=== PATIENT | female | born 1955 | race Two or more races ===

== ENCOUNTER 2016-10-26 19:41 | Emergency (ER) | payer OTHER ==
[2016-10-26 19:48] VITALS: BP 149/86; PULSE 86; TEMP 98.5; BMI 28.2
[2016-10-26] MEDS ORDERED: KETOROLAC TROMETHAMINE 30 MG/1 ML VIAL IVPUSH ONE (21:16)
[2016-10-26] MEDS ORDERED: SODIUM CHLORIDE 1,000 ML IV STA (21:16)
--- NOTE | 2016-10-26 21:16 | PDOC ---
History of Present Illness - History of Present Illness Initial Comments: 10/26/16 22:12 The patient is a 61 year old female with significant history of sinusitis who presents to the ED complaining of approximately 10 days of left ear pain and discomfort. She was seen by an outside doctor at the start of her left ear discomfort and was started on a 7 day course of antibiotics which she completed. She does not recall the name of the antibiotic. She states her pain got worse while traveling to the [facility] last week. Her ear pain is sharp, constant, worse after swimming. The patient denies fever or chills. She denies nausea, vomiting, or diarrhea. No right ear involvement. No cough or sore throat. Allergies: Penicillins, Keflex <Mihaela Craig - Last Filed: 10/27/16 00:19> - General History Source: Patient Exam Limitations: No Limitations <Pravin Carmona - Last Filed: 10/27/16 00:32> - General Chief Complaint: Ear Problem Stated Complaint: EAR PAIN Time Seen by Provider: 10/26/16 20:36 Past History <Mihaela Craig - Last Filed: 10/27/16 00:19> - Past Medical History Asthma: Yes Suicide Attempt (Hx): Yes - Surgical History Abdominal Surgery: Yes (izaiah) Cardiac Surgery: No Cholecystectomy: Yes Lung Surgery: No Neurologic Surgery: No - Psycho/Social/Smoking Cessation Hx Anxiety: No Suicidal Ideation: No Smoking Status: No Smoking History: Never smoked Have you smoked in the past 12 months: No Number of Cigarettes Smoked Daily: 0 Information on smoking cessation initiated: No Hx Alcohol Use: No Drug/Substance Use Hx: No Substance Use Type: None Hx Substance Use Treatment: No <Pravin Carmona - Last Filed: 10/27/16 00:32> - Past Medical History Allergies/Adverse Reactions: Allergies Allergy/AdvReac Type Severity Reaction Status Date / Time cephalexin monohydrate Allergy Rash Verified 10/26/16 19:48 [From Keflex] Penicillins Allergy Rash Verified 10/26/16 19:48 Home Medications: Ambulatory Orders Salmeterol/Fluticasone [Advair 500Mcg/50Mcg -] 1 inh IH BID #1 inh 12/30/12 Gabapentin [Neurontin] 800 mg PO TID 09/23/13 Pregabalin [Lyrica -] 150 mg PO TID 01/28/15 Polyethylene Glycol 3350 [Miralax 119 gm Btl -] 17 gm PO DAILY PRN #1 bottle 04/17 Ursodiol [Actigal -] 300 mg PO BID #60 capsule 02/18/15 Ciprofloxacin HCl/Dexameth [Ciprodex Otic Suspension] 3 drop OT BID #1 bottle Ciprofloxacin [Cipro -] 500 mg PO Q12H #20 tablet 10/27/16 Naproxen [Naprosyn -] 500 mg PO BID PRN #20 tablet 10/27/16 Review of Systems - Review of Systems Able to Perform ROS?: Yes Comments:: 10/26/16 22:16 GENERAL/CONSTITUTIONAL: No fever or chills. No weakness. HEAD, EYES, EARS, NOSE AND THROAT: +Left ear pain x 10 days. No right ear pain. No change in vision. No sore throat. CARDIOVASCULAR: No chest pain or shortness of breath. RESPIRATORY: No cough, wheezing, or hemoptysis. GASTROINTESTINAL: No nausea, vomiting, diarrhea or constipation. GENITOURINARY: No dysuria, frequency, or change in urination. MUSCULOSKELETAL: No joint or muscle swelling or pain. No neck or back pain. SKIN: No rash NEUROLOGIC: No headache, vertigo, loss of consciousness, or change in strength/ sensation. ENDOCRINE: No increased thirst. No abnormal weight change. HEMATOLOGIC/LYMPHATIC: No anemia, easy bleeding, or history of blood clots. ALLERGIC/IMMUNOLOGIC: No hives or skin allergy. <Mihaela Craig - Last Filed: 10/27/16 00:19> *Physical Exam - Vital Signs Last Vital Signs Temp Pulse Resp BP Pulse Ox 98.5 F 86 22 149/86 100 10/26/16 19:45 10/26/16 19:45 10/26/16 19:45 10/26/16 19:45 10/26/16 19:45 - Physical Exam Comments: 10/26/16 22:16 GENERAL: Awake, alert, and fully oriented, in no acute distress HEAD: No signs of trauma EYES: PERRLA, EOMI, sclera anicteric, conjunctiva clear ENT: Left ear: Tenderness to the mastoid and tragus. TM is mildly erythematous with swelling of the ear canal. Right ear normal inspection. Hearing grossly normal, nares patent, oropharynx clear without exudates. Moist mucosa NECK: Normal ROM, supple, no lymphadenopathy, JVD, or masses EXTREMITIES: Normal range of motion, no edema. No clubbing or cyanosis. No cords, erythema, or tenderness NEUROLOGICAL: Cranial nerves II through XII grossly intact. Normal speech, normal gait SKIN: Warm, Dry, normal turgor, no rashes or lesions noted. <Mihaela Craig - Last Filed: 10/27/16 00:19> - Vital Signs Last Vital Signs Temp Pulse Resp BP Pulse Ox 98.5 F 86 22 149/86 100 10/26/16 19:45 10/26/16 19:45 10/26/16 19:45 10/26/16 19:45 10/26/16 19:45 <Pravin Carmona - Last Filed: 10/27/16 00:32> ED Treatment Course - LABORATORY CBC & Chemistry Diagram: 10/26/16 21:55 10/26/16 21:55 - RADIOLOGY Radiology Studies Ordered: 10/27/16 00:19 CT of orbital/temporal bone without contrast. Images preliminarily read by Imaging Tack Cutter Radiograph Interpretation: 10/27/16 00:20 Impression: No evidence of mastoiditis Findings suggestive of left otitis externa - Medications Given in the ED: ED Medications Discontinued Medications Generic Name Dose Route Start Last Admin Trade Name Freq PRN Reason Stop Dose Admin Ketorolac Tromethamine 30 mg 10/26/16 21:16 10/26/16 22:05 Toradol Injection - IVPUSH 10/26/16 21:17 30 mg ONCE ONE Administration <Mihaela Craig - Last Filed: 10/27/16 00:19> - LABORATORY CBC & Chemistry Diagram: 10/26/16 21:55 10/26/16 21:55 <Pravin Carmona - Last Filed: 10/27/16 00:32> Medical Decision Making - Medical Decision Making 10/26/16 21:55 A portion of this note was documented by scribe services under my direction. I have reviewed the details of the note, within reason, and agree with the documentation with the following case summary and management plan written by me. Patient treated in the ED. Nursing notes are reviewed and incorporated into the medical decision-making. Vital signs reviewed. Peripheral IV access obtained by the nurse, laboratory studies are drawn and sent, reviewed and interpreted by myself. Vital Signs Temp Pulse Resp BP Pulse Ox 98.5 F 86 22 149/86 100 10/26/16 19:45 10/26/16 19:45 10/26/16 19:45 10/26/16 19:45 10/26/16 19:45 61 year old female with past medical history of asthma, sinusitis resents with 10 days of left ear pain. Patient developed some mild left your discomfort 10 days ago prior to her trip to [facility]. Was initiated on antibiotic to which she did not remember the name of. Seven-day course which she completed. However, patient went swimming and noted that her left ear was progressively worsening. Now she complains about left mastoid pain in addition to left tragus pain and left in her ear pain. Denies fevers or chills but came to the ED. Has not taken any medications for discomfort. Patient most certainly has otitis externa and requires treatment with fluoroquinolones. However, given the mastoid tenderness, we'll obtain a CT to evaluate for mastoiditis. Labs and reassess. 10/27/16 00:24 CBC, BMP 10/26/16 21:55 10/26/16 21:55 CMP Sodium 141 mmol/L (136-145) 10/26/16 21:55 Potassium 4.4 mmol/L (3.5-5.1) 10/26/16 21:55 Chloride 105 mmol/L (98-107) 10/26/16 21:55 Carbon Dioxide 29 mmol/L (21-32) 10/26/16 21:55 Anion Gap 7 (8-16) L 10/26/16 21:55 BUN 20 mg/dL (7-18) H D 10/26/16 21:55 Creatinine 1.0 mg/dL (0.55-1.02) D 10/26/16 21:55 Creat Clearance w eGFR 56.56 (>60) 10/26/16 21:55 Random Glucose 110 mg/dL (74-106) H D 10/26/16 21:55 Calcium 9.0 mg/dL (8.5-10.1) 10/26/16 21:55 Total Bilirubin 0.3 mg/dL (0.2-1.0) D 10/26/16 21:55 AST 24 U/L (15-37) 10/26/16 21:55 ALT 35 U/L (12-78) D 10/26/16 21:55 Alkaline Phosphatase 64 U/L (45-117) 10/26/16 21:55 Total Protein 7.6 g/dl (6.4-8.2) 10/26/16 21:55 Albumin 3.7 g/dl (3.4-5.0) 10/26/16 21:55 CT reviewed. Otitis externa but no mastoiditis. Will treat with cipro HC otic solution and cipro PO BID. Otiitis externa. Pt reports feeling better with NSAIDS. F/u with PMD I discussed the physical exam findings, ancillary test results and final diagnoses with the patient. I answered all of the patient's questions. The patient was satisfied with the care received and felt comfortable with the discharge plan and treatment plan. The patient will call their primary care physician within 24 hours to arrange follow-up and will return to the Emergency Department with any new, persistant or worsening symptoms. <Pravin Carmona - Last Filed: 10/27/16 00:32> *DC/Admit/Observation/Transfer - Attestations Scribe Attestion: 10/26/16 22:18 Documentation prepared by Mihaela Craig, acting as medical receptionist medical assistant for Pravin Carmona MD. <Mihaela Craig - Last Filed: 10/27/16 00:19> - Discharge Dispostion Admit: No <Pravin Carmona - Last Filed: 10/27/16 00:32> Diagnosis at time of Disposition: Otitis externa Qualifiers: Otitis externa type: unspecified type Chronicity: acute Laterality: left Qualified Code(s): H60.502 - Unspecified acute noninfective otitis externa, left ear - Discharge Dispostion Disposition: HOME Condition at time of disposition: Stable - Prescriptions Prescriptions: Ciprofloxacin [Cipro -] 500 mg PO Q12H #20 tablet Ciprofloxacin HCl/Dexameth [Ciprodex Otic Suspension] 3 drop OT BID #1 bottle Naproxen [Naprosyn -] 500 mg PO BID PRN #20 tablet PRN Reason: Pain - Referrals Referrals: Aurora Velazquez MD [Staff Physician] - - Patient Instructions Printed Discharge Instructions: DI for Otitis Externa Additional Instructions: Please use the ciprodex drops twice a day for 7 days. Also take the cipro 500 mg every 12 hours for 10 days. Take 500 mg naproxen every 12 hours as needed for pain. Follow up with your doctor.
[2016-10-26] MEDS ORDERED: LEVOFLOXACIN 500 MG IVPB 100 ML IVPB ONE ×2 (21:17→21:58)
[2016-10-26] MEDS ORDERED: KETOROLAC TROMETHAMINE 30 MG/1 ML VIAL ONE (21:58)
[2016-10-26 22:05] LABS: BASOPHIL 0.9 % (0-2.0); EOSINOPHIL 4.1 % (0-4.5); MCHC 34.1 g/dl (32.0-36.0); MEAN PLT VOLUME 8.8 fl (7.5-11.1); NEUTROPHILS 63.3 % (42.8-82.8); PLATELET COUNT 315 K/MM3 (134-434); RDW 15.7 % (11.6-15.6)
[2016-10-26 22:30] LABS: ALBUMIN 3.7 g/dl (3.4-5.0); ALK PHOS 64 U/L (45-117); ANION GAP 7 (8-16); BILIRUBIN,TOTAL 0.3 mg/dL (0.2-1.0); CO2 29 mmol/L (21-32); GLUCOSE,RANDOM 110 mg/dL (74-106); SGOT/AST 24 U/L (15-37); SGPT/ALT 35 U/L (12-78); TOT PROT 7.6 g/dl (6.4-8.2)
--- NOTE | 2016-10-28 18:22 | PDOC ---
Patient Follow-up (Call Back) - Post ED Follow - Up Condition at time of discharge: Stable Disposition at time of original discharge: HOME Reason for Call Back: Radiology (CAT scan/temporal bones CT without contrast read by Dr. Rose he called to report that there is on the left temporal bone Opacification of the superior tympanic recess consistent with otitis media. He also noted that pt has trace fluid accumulation within the left mastoid air cells. Patient was treated for left external otitis and was discharged on Cipro and ciprofloxacin otic drops. Pt. was called she is feeling better denies any pain behind left ear or fever. pt was told that azithromycin 250 mg 2 tabs today than one daily for following 4 days was to be started today. She also told to return to emergency room if any fever or pain behind left ear or redness of area or any chills. Patient was also informed to follow-up with her primary care provider as soon as possible.)
== END 2016-10-27 01:03 | disposition home or self-care (01) ==
LOC: SUPCPDRO 19:41 → JERFT 19:41 → JER 19:41
PROC: 3E03329 Introduction of Other Anti-infective into Peripheral Vein, Percutaneous Approach (ICD-10-PCS; principal; 2016-10-26)
PROC: 3E0333Z Introduction of Anti-inflammatory into Peripheral Vein, Percutaneous Approach (ICD-10-PCS; 2016-10-26)
DX: H60.502 Unspecified acute noninfective otitis externa, left ear (principal)
CPT/HCPCS: 36415; 70480-TC; 80053; 85025; 96365; 96375; 99282-25

== ENCOUNTER 2017-11-24 11:12 | Emergency (ER) | payer OTHER ==
[2017-11-24 11:20] VITALS: TEMP 97.7; BMI 28.7
--- NOTE | 2017-11-24 11:44 | PDOC ---
History of Present Illness - General Chief Complaint: Pain Stated Complaint: ABD PAIN Time Seen by Provider: 11/24/17 11:35 History Source: Patient Exam Limitations: No Limitations - History of Present Illness Initial Comments: 11/24/17 12:10 Past History - Past Medical History Allergies/Adverse Reactions: Allergies Allergy/AdvReac Type Severity Reaction Status Date / Time cephalexin monohydrate Allergy Rash Verified 11/24/17 11:18 [From Keflex] Penicillins Allergy Rash Verified 11/24/17 11:18 Home Medications: Ambulatory Orders Salmeterol/Fluticasone [Advair 500Mcg/50Mcg -] 1 inh IH BID #1 inh 12/30/12 Gabapentin [Neurontin] 800 mg PO TID 09/23/13 Pregabalin [Lyrica -] 150 mg PO TID 01/28/15 Polyethylene Glycol 3350 [Miralax 119 gm Btl -] 17 gm PO DAILY PRN #1 bottle 04/17 Ursodiol [Actigal -] 300 mg PO BID #60 capsule 02/18/15 Ciprofloxacin HCl/Dexameth [Ciprodex Otic Suspension] 3 drop OT BID #1 bottle Ciprofloxacin [Cipro -] 500 mg PO Q12H #20 tablet 10/27/16 Naproxen [Naprosyn -] 500 mg PO BID PRN #20 tablet 10/27/16 Azithromycin [Zithromax 250mg Tablets -] 250 mg PO UTDICT #6 tab 10/28/16 Famotidine [Pepcid -] 20 mg PO BID #14 tablet 11/24/17 Sulfamethoxazole/Trimethoprim [Bactrim Ds -] 1 tab PO BID #14 tablet 11/24/17 Asthma: Yes COPD: No - Surgical History Abdominal Surgery: Yes (izaiah) Cardiac Surgery: No Cholecystectomy: Yes Lung Surgery: No Neurologic Surgery: No - Suicide/Smoking/Psychosocial Hx Smoking Status: No Smoking History: Never smoked Have you smoked in the past 12 months: No Number of Cigarettes Smoked Daily: 0 Hx Alcohol Use: No Drug/Substance Use Hx: No Substance Use Type: None Hx Substance Use Treatment: No Review of Systems - Review of Systems Able to Perform ROS?: Yes Comments:: 11/24/17 16:46 CONSTITUTIONAL: Absent: fever, chills, diaphoresis, generalized weakness, malaise, loss of appetite HEENT: Absent: rhinorrhea, nasal congestion, throat pain, throat swelling, difficulty swallowing, mouth swelling, ear pain, eye pain, visual Changes CARDIOVASCULAR: Absent: chest pain, loss of consciousness, palpitations, irregular heart rate, peripheral edema RESPIRATORY: Absent: cough, shortness of breath, dyspnea with exertion, orthopnea, wheezing, stridor, hemoptysis GASTROINTESTINAL: Absent: abdominal pain, abdominal distension, nausea, vomiting, diarrhea, constipation, melena, hematochezia GENITOURINARY: Absent: dysuria, frequency, urgency, hesitancy, hematuria, flank pain, genital pain MUSCULOSKELETAL: Absent: myalgia, arthralgia, joint swelling SKIN: Absent: rash, itching, pallor HEMATOLOGIC/IMMUNOLOGIC: Absent: easy bleeding, easy bruising, lymphadenopathy, frequent infections ENDOCRINE: Absent: unexplained weight gain, unexplained weight loss, heat intolerance, cold intolerance NEUROLOGIC: Absent: headache, focal weakness or paresthesias, dizziness, unsteady gait, seizure, mental status changes, bladder or bowel incontinence PSYCHIATRIC: Absent: anxiety, depression, suicidal or homicidal ideation, hallucinations. Is the patient limited Irish proficient: No *Physical Exam - Vital Signs Last Vital Signs Temp Pulse Resp BP Pulse Ox 97.7 F 72 18 117/79 98 11/24/17 11:18 11/24/17 11:18 11/24/17 11:18 11/24/17 11:18 11/24/17 11:18 - Physical Exam Comments: 11/24/17 16:46 GENERAL: Well developed, well nourished. Awake and alert. No acute distress. HEENT: Normocephalic, atraumatic. PERRLA, EOMI. No conjunctival pallor. Sclera are non- icteric. Moist mucous membranes. Oropharynx is clear. NECK: Supple. Full ROM. No JVD. Carotid pulses 2+ and symmetric, without bruits. No thyromegaly. No lymphadenopathy. CARDIOVASCULAR: Regular rate and rhythm. No murmurs, rubs, or gallops. Distal pulses are 2+ and symmetric. PULMONARY: No evidence of respiratory distress. Lungs clear to auscultation bilaterally. No wheezing, rales or rhonchi. ABDOMINAL: Soft. Non-tender. Non-distended. No rebound or guarding. No organomegaly. Normoactive bowel sounds. MUSCULOSKELETAL Normal range of motion at all joints. No bony deformities or tenderness. No CVA tenderness. EXTREMITIES: No cyanosis. No clubbing. No edema. No calf tenderness. SKIN: Warm and dry. Normal capillary refill. No rashes. No jaundice. NEUROLOGICAL: Alert, awake, appropriate. Cranial nerves 2-12 intact. No deficits to light touch and temperature in face, upper extremities and lower extremities. No motor deficits in the in face, upper extremities and lower extremities. Normoreflexic in the upper and lower extremities. Normal speech. Toes are down- going bilaterally. Gait is normal without ataxia. PSYCHIATRIC: Cooperative. Good eye contact. Appropriate mood and affect. ED Treatment Course - LABORATORY CBC & Chemistry Diagram: 11/24/17 12:20 11/24/17 12:20 *DC/Admit/Observation/Transfer Diagnosis at time of Disposition: Epigastric abdominal pain UTI (urinary tract infection) Qualifiers: Urinary tract infection type: acute cystitis Hematuria presence: without hematuria Qualified Code(s): N30.00 - Acute cystitis without hematuria - Discharge Dispostion Disposition: HOME Condition at time of disposition: Stable Decision to Admit order: No - Prescriptions Prescriptions: Famotidine [Pepcid -] 20 mg PO BID #14 tablet Sulfamethoxazole/Trimethoprim [Bactrim Ds -] 1 tab PO BID #14 tablet - Referrals Referrals: Aurora Velazquez MD [Primary Care Provider] - - Patient Instructions Printed Discharge Instructions: DI for Gastritis Additional Instructions: You have a urinary tract infection. This caused by bacteria. Please drink plenty of fluids. Take your antibiotics as prescribed. Finish the entire dose even if you feel better. You may take Tylenol or Motrin as needed for pain You also have gastritis. Your lab work and ultrasound were normal today Avoid spicy/acidic foods until your symptoms resolve Take the pepcid twice a day for one week Follow up with your primary care doctor in 2-3 days Return to the emergency department if you have fevers, chills, nausea, vomiting , back pain, or have any changes in your symptoms. - Post Discharge Activity Forms/Work/School Notes: Back to Work
[2017-11-24] MEDS ORDERED: SODIUM CHLORIDE 1,000 ML IV STA (11:45)
[2017-11-24] MEDS ORDERED: ACETAMINOPHEN 1000 MG/100 ML VIAL (NON FORMULARY) IVPB ONE (11:45)
[2017-11-24] MEDS ORDERED: ACETAMINOPHEN INJECTION 100 ML IVPB ONE (12:01)
[2017-11-24 12:45] LABS: BASO % 0.6 % (0-2.0); EOS % 3.8 % (0-4.5); HEMATOCRIT 41.4 % (32.4-45.2); HEMOGLOBIN 14.2 GM/dL (10.7-15.3); LYMPH % 34.5 % (8-40); MCHC 34.3 g/dl (32.0-36.0); MEAN CELL VOLUME 84.4 fl (80-96); MEAN PLT VOLUME 9.2 fl (7.5-11.1); MONO % 6.9 % (3.8-10.2); NEUT % 54.2 % (42.8-82.8); PLATELET COUNT 308 K/MM3 (134-434); RBC 4.91 M/mm3 (3.60-5.2); RDW 14.5 % (11.6-15.6); WHITE BLOOD COUNT 8.4 K/mm3 (4.0-10.0)
[2017-11-24 13:02] LABS: ALBUMIN 3.9 g/dl (3.4-5.0); ALK PHOS 64 U/L (45-117); ANION GAP 5 MMOL/L (8-16); BILIRUBIN,TOTAL 0.7 mg/dL (0.2-1); BLOOD UREA NITROGEN 23 mg/dL (7-18); CALCIUM 9.3 mg/dL (8.5-10.1); CHLORIDE 104 mmol/L (98-107); CO2 30 mmol/L (21-32); CREATININE 0.9 mg/dL (0.55-1.3); GLUCOSE,RANDOM 84 mg/dL (74-106); LIPASE 174 U/L (73-393); MAGNESIUM 2.2 mg/dL (1.8-2.4); POTASSIUM 4.7 mmol/L (3.5-5.1); SGOT/AST 34 U/L (15-37); SGPT/ALT 35 U/L (13-61); SODIUM 139 mmol/L (136-145); TOT PROT 7.4 g/dl (6.4-8.2)
[2017-11-24 13:26] LABS: INR 1.03 (0.83-1.09); PROTHROMBIN TIME (PATIENT) 11.6 SEC (9.7-13.0)
[2017-11-24] MEDS ORDERED: ONDANSETRON 4 MG/2 ML VIAL IVPUSH ONE (13:40)
[2017-11-24] MEDS ORDERED: MAG HYDROX/AL HYDROX/SIMETH 30 ML UNIT-DOSE CUP PO ONE (13:40)
[2017-11-24] MEDS ORDERED: FAMOTIDINE 20 MG/50 ML IVPB 20 MG/50 ML MG IVPB ONE ×2 (13:40→14:13)
[2017-11-24] MEDS ORDERED: MAG HYDROX/AL HYDROX/SIMETH 30 ML UNIT-DOSE CUP ONE (14:13)
[2017-11-24 16:29] LABS: URINE APPEARANCE CLEAR; URINE BILIRUBIN NEGATIVE (<2.0 mg/dL); URINE COLOR LTYELLOW; URINE GLUCOSE (UA) NEGATIVE (NEGATIVE); URINE KETONE NEGATIVE (NEGATIVE); URINE NITRITE NEGATIVE (NEGATIVE); URINE PROTEIN NEGATIVE (NEGATIVE); URINE UROBILINOGEN NEGATIVE mg/dL (0.2-1.0)
[2017-11-24 16:34] LABS: URINE LEUK ESTERASE 2+ (NEGATIVE)
[2017-11-24 16:57] LABS: EPI CELLS RARE /HPF (FEW); URINE MUCUS RARE
[2017-11-24 17:14] VITALS: BP 113/65; PULSE 67
--- NOTE | 2017-11-24 18:07 | EKG ---
Test Reason : Blood Pressure : / mmHG Vent. Rate : 069 BPM Atrial Rate : 069 BPM P-R Int : 144 ms QRS Dur : 078 ms QT Int : 408 ms P-R-T Axes : 034 061 045 degrees QTc Int : 437 ms NORMAL SINUS RHYTHM WITH SINUS ARRHYTHMIA LOW VOLTAGE QRS BORDERLINE ECG WHEN COMPARED WITH ECG OF 28-JAN-2015 15:58, NO SIGNIFICANT CHANGE WAS FOUND Confirmed by PATRICE POMPA MD ([id number]) on 11/24/2017 6:07:31 PM Referred By: Confirmed By:PATRICE POMPA MD
== END 2017-11-24 17:05 | disposition home or self-care (01) ==
LOC: JER 11:12
PROC: 3E033GC Introduction of Other Therapeutic Substance into Peripheral Vein, Percutaneous Approach (ICD-10-PCS; principal; 2017-11-24)
DX: R10.13 Epigastric pain (principal); N30.00 Acute cystitis without hematuria; J45.909 Unspecified asthma, uncomplicated
CPT/HCPCS: 36415; 76705-TC; 80053; 81003; 81015; 82550; 83690; 83735; 84484; 85025; 85610; 87086; 93005; 93010; 96365; 99283-25; J0131; J7030

== ENCOUNTER 2018-01-19 02:29 | Emergency (ER) | payer OTHER ==
[2018-01-19 02:43] VITALS: BP 148/69; PULSE 98; TEMP 98.1; BMI 27.4
--- NOTE | 2018-01-19 02:43 | PDOC ---
History of Present Illness - General Chief Complaint: Foreign Body (FB) Stated Complaint: FOREIGN OBJECT IN EAR Time Seen by Provider: 01/19/18 02:43 Past History - Travel Traveled outside of the country in the last 30 days: No Close contact w/someone who was outside of country & ill: No - Past Medical History Allergies/Adverse Reactions: Allergies Allergy/AdvReac Type Severity Reaction Status Date / Time cephalexin monohydrate Allergy Rash Verified 01/19/18 02:38 [From Keflex] Penicillins Allergy Rash Verified 01/19/18 02:38 Home Medications: Ambulatory Orders Salmeterol/Fluticasone [Advair 500Mcg/50Mcg -] 1 inh IH BID #1 inh 12/30/12 Gabapentin [Neurontin] 800 mg PO TID 09/23/13 Pregabalin [Lyrica -] 150 mg PO TID 01/28/15 Polyethylene Glycol 3350 [Miralax 119 gm Btl -] 17 gm PO DAILY PRN #1 bottle 04/17 Ursodiol [Actigal -] 300 mg PO BID #60 capsule 02/18/15 Ciprofloxacin HCl/Dexameth [Ciprodex Otic Suspension] 3 drop OT BID #1 bottle Ciprofloxacin [Cipro -] 500 mg PO Q12H #20 tablet 10/27/16 Naproxen [Naprosyn -] 500 mg PO BID PRN #20 tablet 10/27/16 Azithromycin [Zithromax 250mg Tablets -] 250 mg PO UTDICT #6 tab 10/28/16 Famotidine [Pepcid -] 20 mg PO BID #14 tablet 11/24/17 Sulfamethoxazole/Trimethoprim [Bactrim Ds -] 1 tab PO BID #14 tablet 11/24/17 Asthma: Yes COPD: No - Surgical History Abdominal Surgery: Yes (lauriuck) Cardiac Surgery: No Cholecystectomy: Yes Lung Surgery: No Neurologic Surgery: No - Suicide/Smoking/Psychosocial Hx Smoking Status: No Smoking History: Never smoked Have you smoked in the past 12 months: No Number of Cigarettes Smoked Daily: 0 Information on smoking cessation initiated: No Hx Alcohol Use: No Drug/Substance Use Hx: No Substance Use Type: None Hx Substance Use Treatment: No Review of Systems - Review of Systems Able to Perform ROS?: Yes Is the patient limited Hungarian proficient: No Constitutional: No: Symptoms Reported, See HPI, Chills, Diaphoresis, Fever, Loss of Appetite, Malaise, Night Sweats, Weakness, Weight Stable, Unintentional Wgt. Loss, Unexplained wgt Loss, Other HEENTM: Yes: Hearing Loss (due to cotton in the ear) Respiratory: No: Symptoms reported, See HPI, Cough, Orthopnea, Shortness of Breath, SOB with Exertion, SOB at Rest, Stridor, Wheezing, Productive cough, Hemoptysis, Other Cardiac (ROS): No: Symptoms Reported, See HPI, Chest Pain, Edema, Irregular Heart Rate, Lightheadedness, Palpitations, Syncope, Chest Tightness, Other ABD/GI: No: Symptoms Reported, See HPI, Abdominal Distended, Abd. Pain w/ defecation, Blood Streaked Bowels, Constipated, Diarrhea, Difficulty Swallowing , Nausea, Poor Appetite, Poor Fluid Intake, Rectal Bleeding, Vomiting, Indigestion, Abdominal cramping, Tarry Stools, Other : No: Symptoms Reported, See HPI, Burning, Dysuria, Discharge, Frequency, Flank Pain, Hematuria, Incontinence, Pain, Urgency, Testicular Mass, Testicular Swelling, Lesions, Testicular Pain, Other Musculoskeletal: No: Symptoms Reported, See HPI, Back Pain, Gout, Joint Pain, Joint Swelling, Muscle Pain, Muscle Weakness, Neck Pain, Joint Stiffness, Other Integumentary: No: Symptoms Reported, See HPI, Bruising, Change in Color, Change in Hair/Nails, Dryness, Erythema, Flushing, Lesions, Lumps, Pallor, Pruritus, Rash, Sweating, Other Neurological: No: Symptoms reported, See HPI, Headache, Numbness, Paresthesia, Pre-Existing Deficit, Seizure, Tingling, Tremors, Weakness, Unsteady Gait, Ataxia, Dizziness, Other *Physical Exam - Vital Signs Last Vital Signs Temp Pulse Resp BP Pulse Ox 98.1 F 98 H 20 148/69 97 01/19/18 02:38 01/19/18 02:38 01/19/18 02:38 01/19/18 02:38 01/19/18 02:38 - Physical Exam General Appearance: Yes: Nourished, Appropriately Dressed, Mild Distress HEENT: positive: EOMI, PHILIPPE, Normal ENT Inspection, Normal Voice, Symmetrical, Pharynx Normal, TM Dull (pt has a white TM on the left. On the right TM is obscured by a cotton ball, as well as pt has a nodule in the entrance of the right ear canal) Neck: positive: Trachea midline, Supple. negative: Tender Respiratory/Chest: positive: Lungs Clear, Normal Breath Sounds. negative: Chest Tender, Respiratory Distress, Accessory Muscle Use Cardiovascular: positive: Regular Rhythm, Regular Rate, S1, S2 Gastrointestinal/Abdominal: positive: Normal Bowel Sounds, Flat, Soft. negative : Tender, Organomegaly Musculoskeletal: positive: Normal Inspection Extremity: positive: Normal Capillary Refill, Normal Inspection Integumentary: positive: Normal Color, Dry, Warm Medical Decision Making - Medical Decision Making 01/19/18 03:25 Pt placed menthol/vicks on a cotton ball and stuck in her ear, as she was having right ear pain.She accidentally pushed the cotton ball into the canal, now with pain. 01/19/18 03:25 Cotton ball removed with flushes of peroxide in the ear. Pt is feeling better. Pt will follow with Dr. Dumont. We will not prescribe ear drops. *DC/Admit/Observation/Transfer Diagnosis at time of Disposition: Foreign body in ear - Discharge Dispostion Disposition: HOME Condition at time of disposition: Improved Decision to Admit order: No - Referrals Referrals: Aurora Velazquez MD [Primary Care Provider] - Dev Dumont MD [Staff Physician] - - Patient Instructions Printed Discharge Instructions: DI for Removal of Foreign Body From Ear Print Language: WELSH - Post Discharge Activity
== END 2018-01-19 03:24 | disposition home or self-care (01) ==
LOC: JER 02:29
DX: T16.1XXA Foreign body in right ear, initial encounter (principal); X58.XXXA Exposure to other specified factors, initial encounter; Y93.89 Activity, other specified; Y92.038 Other place in apartment as the place of occurrence of the external cause; Y99.8 Other external cause status
CPT/HCPCS: 99282-25

== ENCOUNTER 2019-04-07 04:37 | Day surgery (SDC) | payer OTHER ==
[2019-04-05 13:27] VITALS: BMI 28.2
--- NOTE | 2019-04-06 19:22 | HP ---
DATE OF ADMISSION: 04/07/2019 ADMISSION DIAGNOSES: Chronic pansinusitis with nasal polyps and anosmia. HISTORY OF PRESENT ILLNESS: This 63-year-old female has had longstanding nasal and sinus problems which have failed to improve with appropriate medical therapy. She had complaints of nasal congestion, postnasal drip, sinus pain and pressure. She has significant sinus discomfort. She has been treated with numerous courses of antibiotics as well as oral and topical steroid medication, but yet has persistent symptoms. Examination demonstrates numerous nasal polyps as well as intermittent purulent drainage. CT scan demonstrates chronic pansinusitis, and she is now admitted for endoscopic sinus surgery to address ethmoid, maxillary, frontal, and sphenoid sinuses, as well as to remove a large nasal polyp. PAST MEDICAL HISTORY: Primary medical doctor is Aurora Velazquez MD. Patient has had previous sinus surgery in 2010 at [facility]. She had no anesthesia problems. Bleeding history is negative. FAMILY HISTORY: Negative for bleeding or anesthesia problems. MEDICAL CONDITIONS: Include asthma, depression, and allergies. PRESENT MEDICATIONS: Include methylprednisolone and clarithromycin. ALLERGIES: She does report an allergy to PENICILLIN which produces hives and a rash. SOCIAL HISTORY: She does not smoke. REVIEW OF SYSTEMS: Shows no cough, no fever, and no trouble swallowing. There is no abdominal pain. She does have allergies. She does have nasal congestion and postnasal drip. PHYSICAL EXAMINATION: General: Patient is a well-developed female in no acute distress. HEENT: Head is normal, and eyes are clear. Ears are unremarkable. The oral cavity is unremarkable. Examination of the nose with nasal endoscopy shows deviation of the septum. There are moderate polyps on the right and massive obstructive polyps on the left. There is significant polyposis in the middle meati and superior meati. Mucus is clear. CT scan of the paranasal sinuses performed at [facility] on March 08, 2019, shows chronic sinusitis with total opacification of the maxillary and ethmoid and sphenoid sinuses. There is partial opacification of the frontal sinuses. There is significant soft tissue, mass-like density in the left nasal cavity consistent with the nasal polyp seen on exam. There is evidence of previous nasal surgery. The orbits are normal. IMPRESSION: Chronic pansinusitis with significant polyposis. PLAN: Endoscopic sinus surgery to address ethmoid, maxillary, sphenoid, and frontal sinuses; nasal polypectomy with image guidance under general anesthesia. INFORMED CONSENT: Patient understands the indications, alternatives, nature, risks, and benefits of proposed surgery. Potential complications including, but not limited to, anesthesia, bleeding, infection, recurrence, numbness, reduced sense of smell, eye injury and brain injury were discussed in detail. She understands and accepts these risks and wishes to proceed with surgery. Questions were answered fully. DANIEL GUILLEN M.D. LUCILA/[id number] [email or web address]
[2019-04-07] MEDS ORDERED: DESFLURANE GAS 240 ML BOTTLE IH ONE (10:10)
[2019-04-07] MEDS ORDERED: MIDAZOLAM HCL 2 MG/2 ML SINGLE DOSE VIAL ONE (10:14)
[2019-04-07] MEDS ORDERED: PROPOFOL 20 ML ONE (10:14)
[2019-04-07] MEDS ORDERED: ROCURONIUM BROMIDE 50 MG/5 ML SYRINGE ONE (10:14)
[2019-04-07] MEDS ORDERED: fentaNYL CITRATE 250 MCG/5 ML VIAL ONE (10:14)
--- NOTE | 2019-04-07 10:16 | HP ---
History & Physical Update - History History: No Change - Physical Physical: No Change - Assessment Assessment: No Change - Plan Plan: No Change
[2019-04-07] MEDS ORDERED: LIDOCAINE 1%-EPI 1:100,000 30 ML MDV IJ ONE (10:17)
[2019-04-07] MEDS ORDERED: DEXAMETHASONE SOD PHOSPHATE 4 MG/1 ML VIAL ONE (10:17)
[2019-04-07] MEDS ORDERED: LIDOCAINE HCL/PF 2% SDV 5ML VIAL ONE (10:17)
[2019-04-07] MEDS ORDERED: COCAINE HCL 4% TOPICAL SOLUTION 4 ML BOTTLE TP ONE ×2 (10:19→10:53)
[2019-04-07] MEDS ORDERED: EPHEDRINE SULFATE/0.9% NACL/PF 50 MG/10 ML SYRINGE NR ONE (10:44)
[2019-04-07] MEDS ORDERED: LIDOCAINE 1%/EPI 1:100000 (20 ML MULTI DOSE VIAL) IJ ONE ×2 (10:53)
[2019-04-07] MEDS ORDERED: NEOSTIGMINE METHYLSULFATE 0.5 MG/ML - 10 ML MDV ONE (11:17)
[2019-04-07] MEDS ORDERED: GLYCOPYRROLATE 0.2 MG/1 ML VIAL ONE (11:17)
--- NOTE | 2019-04-07 12:19 | OP ---
Operative Note - Note: Operative Date: 04/07/19 (07348) Pre-Operative Diagnosis: chronic pansinusitis, extensive nasal polyposis Operation: 1. bilateral endoscopic ethmoidectomy, anterior and posterior, 2 bilateral endoscopic maxillary antrostomy with removal of tissue, 3. 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 right nasal polyp, ethmoid tissue, maxillary sinus tissue Estimated Blood Loss (mls): 25 Blood Volume Replaced (mls): 0 Fluid Volume Replaced (mls): 1,000 Operative Report Dictated: Yes
[2019-04-07] MEDS ORDERED: oxyCODONE HCL 5 MG TABLET PO PRN (12:35)
[2019-04-07] MEDS ORDERED: LACTATED RINGERS SOLUTION 1,000 ML IV SCH (12:45)
[2019-04-07] MEDS ORDERED: ONDANSETRON 4 MG/2 ML VIAL IVPUSH PRN (13:16)
[2019-04-07 14:52] VITALS: TEMP 97.6
[2019-04-07 15:52] VITALS: BP 107/68; PULSE 86
--- NOTE | 2019-04-07 22:44 | OP ---
DATE OF OPERATION: 04/07/2019 PREOPERATIVE DIAGNOSES: Chronic pansinusitis, extensive nasal polyposis. POSTOPERATIVE DIAGNOSES: Chronic pansinusitis, extensive nasal polyposis. PROCEDURE: 1. Bilateral endoscopic ethmoidectomy, anterior and posterior. 2. Bilateral endoscopic maxillary antrostomy with removal of tissue. 3. Bilateral endoscopic sphenoidotomy. 4. Bilateral endoscopic frontal sinus exploration. 5. Extensive nasal polypectomy, bilateral. 6. Image guidance. SURGEON: Dev Dumont MD ANESTHESIOLOGIST: VIVIAN Roldan-CRVarun ANESTHESIA: General via endotracheal tube. INDICATIONS: This 63-year-old female has had a long history of chronic nasal and sinus problems including nasal polyps. She has undergone previous endoscopic sinus surgery in 2010. She has had significant symptoms of obstruction, anosmia, drainage, and sinus pain. She has failed to improve with appropriate antibiotics and oral steroids. Examination demonstrates massive polyp on the left side with obstruction. Right side has polyposis. CT scan demonstrates chronic pansinusitis. She is now brought to surgery for treatment. FINDINGS: Extensive nasal polyposis, left greater than right. 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 Also, right middle turbinate significant synechiae to the lateral nasal wall and prior resection of posterior aspect of the right middle turbinate. DESCRIPTION OF PROCEDURE: Patient was brought to the operating room and placed on the operating table in supine position. General endotracheal anesthesia was induced to a satisfactory level. She was prepped and draped in the usual fashion for surgery. The nasal cavities were inspected. Lidocaine 1% with epinephrine 1:100,000 was infiltrated into the visible nasal polyps. Cocaine 4% was placed within the nasal cavities for decongestion. The [employer] Image Guidance System was utilized, uploading the patient's CT scan date and registering the patient. This system was used intermittently throughout the case to identify anatomic landmarks and to guide dissection. The nasal pledgets were removed. Nasal endoscopy was performed, and a severe left nasal polyposis was seen. Nasal polyps were also seen on the right side. Synechia was found in the left superior nasal cavity as well as the right middle turbinate to lateral nasal wall. Additional lidocaine with epinephrine was infiltrated into the lateral nasal hanley and the right middle turbinate. Additional cocaine 4% was . The left paranasal sinus was first addressed. A large nasal polyp was grasped superiorly in the ethmoid bed. This was removed and was approximately 3-4 cm in greatest dimension. After this was removed, multiple small areas of polyposis were seen within the ethmoid cavity. There was no identifiable left middle turbinate. The nasal septum had a posterior perforation between 1 to 1.5 cm in size. Polyps were seen around the sphenoethmoid recess, which were removed. The ethmoid forceps and Xomed microdebrider with guidance were used to open up some areas of blockage in the anterior and posterior ethmoid sinuses on the left. Care was taken to preserve the lamina papyracea and the fovea ethmoidalis. The sphenoethmoid recess was then opened and the sphenoid ostium enlarged. Attention was then turned toward the left maxillary sinus. Obstructing polypoid tissue was removed. The uncinate process was removed. The previous surgical antrostomy was widened. The tissue was removed from within the maxillary sinus. Finally, the frontal recess was explored using the 70-degree scope. Polypoid tissue was removed from the anterior-most ethmoid region, and the frontal recess was opened. The frontal ostium could be seen, and excellent transillumination of the frontal sinus was observed using the 70-degree scope. Attention was then turned toward the right paranasal sinuses. Nasal polyps were removed. The synechiae of the right middle turbinate and lateral nasal wall was then lysed with the sickle knife. This mobilized the very weakly attached middle turbinate, and a very large polyp was seen in the ethmoid sinus. This was removed. The anterior and posterior ethmoids were then cleaned of additional polyps and disease. The fovea ethmoidalis and lamina papyracea were preserved. The sphenoethmoid recess was cleared of polyps and sphenoidotomy created. Attention was then turned toward the right maxillary sinus. Polypoid tissue was removed from the area of the natural ostium. The interior of the maxillary sinus was observed. Reversible mucosal changes of a moderate degree were observed. Finally, the right frontal recess was explored with the 70-degree scope and the giraffe forceps. Polypoid tissue was removed from the frontal recess. The frontal ostium was identified, and again, with the 70-degree telescope, excellent frontal transillumination was observed through the forehead skin. Final inspection demonstrated open frontal, sphenoid, maxillary, and ethmoid sinuses. Spot electrocauterization was performed for some areas of oozing. Nasopore dressings were placed in the ethmoid bed on the left and the ethmoid bed, medializing the floppy middle turbinate remnant on the right. Patient tolerated the procedure well. She was then awakened from general anesthesia and transferred to the PACU in stable condition. ESTIMATED BLOOD LOSS: 25 mL. She received the procedure. SPECIMENS: Include left nasal polyp, ethmoid and maxillary sinus tissue, as well as right nasal polyp, ethmoid and maxillary sinus tissue. There were also shavings from the microdebrider, combining right and left ethmoid tissue. COMPLICATIONS: None. DEV DUMONT M.D. LUCILA/[id number]
--- NOTE | 2019-04-08 16:43 | PATH ---
Surgical Pathology Report Patient Name: ANKIT LEON [facility]. Rec. #: [id number] /Age/Gender: 1955 (Age: 63) / F Account: [id number] Location: [facility] SURGICAL Taken: 04/07/2019 Received: 04/07/2019 Reported: 04/08/2019 Physicians: Dev Dumont M.D. Specimen(s) Received A: LEFT NASAL POLYP, ETHMOID AND MAXILLARY SINUS TISSUR B: RIGHT NASAL POLYP, ETHMOID AND MAXILLARY SINUS TISSUE C: LEFT AND RIGHT ETHMOID SHAVINGS Clinical History Chronic pansinusitis, nasal polyps Final Diagnosis A. LEFT NASAL POLYP, ETHMOID AND MAXILLARY SINUS TISSUE, EXCISION: INFLAMMATORY POLYPS. CHRONIC SINUSITIS. B. RIGHT NASAL POLYP, ETHMOID AND MAXILLARY SINUS TISSUE, EXCISION: INFLAMMATORY POLYPS. CHRONIC SINUSITIS. C. LEFT AND RIGHT ETHMOIDS SHAVINGS: ETHMOID SINUS TISSUE WITH CHRONIC SINUSITIS. Electronically Signed Rakesh Randolph M.D. Gross Description A. Received in formalin labeled "left nasal polyp, ethmoid and maxillary sinus tissue," is a 3.3 x 2.5 x 0.6 cm jimenez-yellow, polypoid portion of soft tissue. Also received within the same container is a 2.7 x 2.0 x 0.3 cm aggregate of jimenez fragments of cartilage and possible bone. The specimen is entirely submitted in 3 cassettes as follows: 3-3-vhwfxrjj polyp; 3-cartilage and possible bone, following decalcification. B. Received in formalin labeled "right nasal polyp, ethmoid and maxillary sinus tissue," is a 1.7 x 1.3 x 0.6 cm jimenez, polypoid portion of soft tissue. Also received within the same container is a 1.9 x 1.6 x 0.3 cm aggregate of jimenez fragments of cartilage and possible bone. The specimen is entirely submitted in 2 cassettes as follows: 1-bisected polyp; 2-cartilage and possible bone, following decalcification. C. Received in formalin labeled "left and right ethmoid shavings," the 2.7 x 1.4 x 0.1 cm aggregate of red soft tissue fragments admixed with mucus. The formalin is filtered and the specimen is entirely submitted in one cassette. /04/07/201904/07/2019
== END 2019-04-07 15:20 | disposition home or self-care (01) ==
LOC: JASU-SURG 04:37
PROVIDERS: ATTEND Otolaryngology
PROC: 09TV8ZZ Resection of Left Ethmoid Sinus, Via Natural or Artificial Opening Endoscopic (ICD-10-PCS; 2019-04-07)
PROC: 09TU8ZZ Resection of Right Ethmoid Sinus, Via Natural or Artificial Opening Endoscopic (ICD-10-PCS; 2019-04-07)
PROC: 8E09XBZ Computer Assisted Procedure of Head and Neck Region (ICD-10-PCS; 2019-04-07)
PROC: 09BK8ZX Excision of Nasal Mucosa and Soft Tissue, Via Natural or Artificial Opening Endoscopic, Diagnostic (ICD-10-PCS; 2019-04-07)
PROC: 8E09XBZ Computer Assisted Procedure of Head and Neck Region (ICD-10-PCS; principal; 2019-04-07 10:00)
DX: J32.4 Chronic pansinusitis (principal); J33.8 Other polyp of sinus
CPT/HCPCS: 94760

== ENCOUNTER 2019-10-06 11:33 | Emergency (ER) | payer OTHER ==
[2019-10-06 11:40] VITALS: BP 153/77; PULSE 76; TEMP 98.1; BMI 28.8
--- NOTE | 2019-10-06 11:56 | PDOC ---
History of Present Illness - General Chief Complaint: Ear Problem Stated Complaint: LF EAR PAIN Time Seen by Provider: 10/06/19 11:40 Past History - Medical History Allergies/Adverse Reactions: Allergies Allergy/AdvReac Type Severity Reaction Status Date / Time cephalexin monohydrate Allergy Rash Verified 04/05/19 13:28 [From Keflex] Penicillins Allergy Rash Verified 04/05/19 13:28 Home Medications: Ambulatory Orders Salmeterol/Fluticasone [Advair 500Mcg/50Mcg -] 1 inh IH BID #1 inh 12/30/12 Gabapentin [Neurontin] 800 mg PO TID 09/23/13 Pregabalin [Lyrica -] 150 mg PO TID 01/28/15 Polyethylene Glycol 3350 [Miralax 119 gm Btl -] 17 gm PO DAILY PRN #1 bottle 02/01/15 Ursodiol [Actigal -] 300 mg PO BID #60 capsule 02/18/15 Famotidine [Pepcid -] 20 mg PO BID #14 tablet 11/24/17 Cholecalciferol (Vitamin D3) [Vitamin D3 -] 400 unit PO DAILY 04/07/19 Clarithromycin [Clarithromycin ER] 500 mg PO Q12H 04/07/19 Cyanocobalamin [Vitamin B12 -] 100 mcg PO DAILY 04/07/19 predniSONE [Deltasone -] 4 mg PO DAILY 04/07/19 Ciprofloxacin HCl/Dexameth [Ciprodex Otic Suspension] 4 drop OS BID 7 Days #1 bottle 10/06/19 Anemia: No Asthma: Yes Cancer: No Cardiac Disorders: No CVA: No COPD: No CHF: No Dementia: No Diabetes: No GI Disorders: No Disorders: No HTN: No Hypercholesterolemia: No Liver Disease: No Seizures: No Thyroid Disease: No - Surgical History Abdominal Surgery: Yes (izaiah) Cardiac Surgery: No Cholecystectomy: Yes Lung Surgery: No Neurologic Surgery: No - Reproductive History Is Patient Now?: No - Immunization History Immunization Up to Date: Yes - Psycho-Social/Smoking History Smoking Status: No Smoking History: Never smoked Have you smoked in the past 12 months: No Number of Cigarettes Smoked Daily: 0 - Substance Abuse Hx (Audit-C & DAST Scrn) How often the patient has a drink containing alcohol: Never Score: In Men: 4 or > Positive; In Women: 3 or > Positive: 0 Screen Result (Pos requires Nsg. Audit-10AR): Negative *Physical Exam - Vital Signs Last Vital Signs Temp Pulse Resp BP Pulse Ox 98.1 F 76 19 153/77 99 10/06/19 11:35 10/06/19 11:35 10/06/19 11:35 10/06/19 11:35 10/06/19 11:35 Medical Decision Making - Medical Decision Making 10/06/19 11:51 Assessment: Pt is a 64 y/o female with h/o asthma who presents with L ear otitis externa. Plan: -ciprodex otic prescribed -Patient to follow-up with her primary doctor within 1 to 2 weeks for repeat eval -Patient understands and agrees with this treatment plan and she is stable for discharge. Discharge - Discharge Information Problems reviewed: Yes Clinical Impression/Diagnosis: Otitis externa of left ear Qualifiers: Otitis externa type: other infective Chronicity: acute Qualified Code(s): H60.392 - Other infective otitis externa, left ear Condition: Stable Disposition: HOME - Additional Discharge Information Prescriptions: Ciprofloxacin HCl/Dexameth [Ciprodex Otic Suspension] 4 drop OS BID 7 Days #1 bottle - Follow up/Referral - Patient Discharge Instructions Patient Printed Discharge Instructions: DI for Otitis Externa Additional Instructions: Use the antibiotic drops as prescribed. Be sure to follow-up with your primary doctor within 1 to 2 days for repeat evaluation. Take Tylenol or ibuprofen for pain. Get plenty of rest and drink plenty of fluids. - Post Discharge Activity
== END 2019-10-06 12:02 | disposition home or self-care (01) ==
LOC: JERFT 11:33
DX: H60.392 Other infective otitis externa, left ear (principal)
CPT/HCPCS: 99283-25

== ENCOUNTER 2020-04-13 09:13 | Inpatient (IN) | payer OTHER ==
[2020-04-13] MEDS ORDERED: methylPREDNISolone NA SUCC 125 MG/2 ML VIAL IVPUSH ONE (09:28)
[2020-04-13] MEDS ORDERED: MAGNESIUM SULF 50% (8.12 MEQ/2 ML-1 GM VIAL) IVPB ONE ×2 (09:28)
[2020-04-13] MEDS: ALBUTEROL SO4 2.5/IPRATROPIUM 0.5 INH SOL 3 ML VIAL.NEB. NEB SCH ×7 (09:30→12:15)
[2020-04-13] MEDS ORDERED: methylPREDNISolone NA SUCC 125 MG/2 ML VIAL ONE (09:35)
[2020-04-13] MEDS ORDERED: MAGNESIUM SULFATE IN WATER 2 GM/50 ML IVPB IVPB ONE (09:35)
[2020-04-13 10:32] LABS: CHLORIDE 104 mmol/L (98-107); POTASSIUM 3.6 mmol/L (3.5-5.1); SODIUM 138 mmol/L (136-145)
[2020-04-13 10:35] LABS: ALBUMIN 3.8 g/dl (3.4-5.0); ANION GAP 5 MMOL/L (8-16); CALCIUM 9.3 mg/dL (8.5-10.1); CO2 29 mmol/L (21-32); GLUCOSE,RANDOM 130 mg/dL (74-106)
[2020-04-13 10:38] LABS: SGOT/AST 20 U/L (15-37); SGPT/ALT 32 U/L (13-61)
[2020-04-13 10:39] LABS: BILIRUBIN,TOTAL 0.5 mg/dL (0.2-1)
[2020-04-13 10:40] LABS: BASO % 0.5 % (0-2.0); EOS % 9.9 % (0-4.5); HEMATOCRIT 42.8 % (32.4-45.2); HEMOGLOBIN 14.4 GM/dL (10.7-15.3); LYMPH % 37.1 % (8-40); MCH 29.3 pg (25.7-33.7); MCHC 33.6 g/dl (32.0-36.0); MEAN CELL VOLUME 87.2 fl (80-96); MEAN PLT VOLUME 9.3 fl (7.5-11.1); MONO % 6.4 % (3.8-10.2); NEUT % 46.1 % (42.8-82.8); PLATELET COUNT 347 K/MM3 (134-434); RBC 4.91 M/mm3 (3.60-5.2); RDW 15.1 % (11.6-15.6); TOT PROT 7.4 g/dl (6.4-8.2); WHITE BLOOD COUNT 9.1 K/mm3 (4.0-10.0)
[2020-04-13 10:41] LABS: ALK PHOS 61 U/L (45-117)
[2020-04-13 10:43] LABS: N-TERMINAL BNP 30.7 pg/ml (5-125)
[2020-04-13] MEDS ORDERED: ALBUTEROL SO4 HFA INHALER IH PRN (12:27)
[2020-04-13] MEDS ORDERED: ALBUTEROL SO4 2.5/IPRATROPIUM 0.5 INH SOL 3 ML VIAL.NEB. NEB PRN (15:41)
[2020-04-13] MEDS ORDERED: AZITHROMYCIN IVPB 500 MG/250 ML BAG IVPB ONE (15:57)
[2020-04-13] MEDS ORDERED: methylPREDNISolone NA SUCC 40 MG/1 ML VIAL ONE (15:57)
[2020-04-13] MEDS: methylPREDNISolone NA SUCC 40 MG/1 ML VIAL IVPUSH SCH ×2 (16:08→21:28)
[2020-04-13] MEDS: AZITHROMYCIN IVPB 500 MG/250 ML BAG IVPB SCH (16:08)
[2020-04-13] MEDS ORDERED: ACETAMINOPHEN 325 MG TABLET (FP) PO ONE (23:49)
[2020-04-14 00:09] VITALS: BMI 30.8
[2020-04-14] MEDS: methylPREDNISolone NA SUCC 40 MG/1 ML VIAL IVPUSH SCH ×4 (02:44→22:01)
[2020-04-14] MEDS ORDERED: PNEUMOC 13-VAL CONJ-DIP CRM/PF 0.5 ML DISP.SYRIN IM ONE (04:34)
[2020-04-14 07:34] LABS: BASO % 0.1 % (0-2.0); HEMATOCRIT 38.2 % (32.4-45.2); HEMOGLOBIN 12.9 GM/dL (10.7-15.3); LYMPH % 7.9 % (8-40); MCH 29.2 pg (25.7-33.7); MCHC 33.8 g/dl (32.0-36.0); MEAN CELL VOLUME 86.3 fl (80-96); MEAN PLT VOLUME 9.3 fl (7.5-11.1); MONO % 2.2 % (3.8-10.2); NEUT % 89.8 % (42.8-82.8); PLATELET COUNT 299 K/MM3 (134-434); RBC 4.43 M/mm3 (3.60-5.2); RDW 14.9 % (11.6-15.6); WHITE BLOOD COUNT 13.3 K/mm3 (4.0-10.0)
[2020-04-14 07:53] LABS: POTASSIUM 4.9 mmol/L (3.5-5.1)
[2020-04-14 07:56] LABS: ALBUMIN 3.5 g/dl (3.4-5.0); BLOOD UREA NITROGEN 19.1 mg/dL (7-18)
[2020-04-14 08:00] LABS: BILIRUBIN,TOTAL 0.3 mg/dL (0.2-1); TOT PROT 6.9 g/dl (6.4-8.2)
[2020-04-14] MEDS ORDERED: PNEUMOCOCCAL 23 VACCINE 0.5 ML VIAL IM ONE (10:00)
[2020-04-14] MEDS: ENOXAPARIN NA (PORCINE) 40 MG/0.4 ML DISP.SYRIN SQ SCH (10:51)
[2020-04-14] MEDS: AZITHROMYCIN IVPB 500 MG/250 ML BAG IVPB SCH (10:52)
[2020-04-14] MEDS: PANTOPRAZOLE 40 MG TABLET PO SCH (10:52)
[2020-04-14] MEDS ORDERED: ALBUTEROL SO4 2.5/IPRATROPIUM 0.5 INH SOL 3 ML VIAL.NEB. NEB PRN (15:37)
[2020-04-14] MEDS ORDERED: ALBUTEROL SO4 2.5/IPRATROPIUM 0.5 INH SOL 3 ML VIAL.NEB. NEB SCH (16:00)
[2020-04-14] MEDS ORDERED: diphenhydrAMINE HCL 25 MG CAPSULE (FP) PO ONE (20:50)
[2020-04-15] MEDS: methylPREDNISolone NA SUCC 40 MG/1 ML VIAL IVPUSH SCH ×2 (03:15→09:52)
[2020-04-15] MEDS: ENOXAPARIN NA (PORCINE) 40 MG/0.4 ML DISP.SYRIN SQ SCH (09:46)
[2020-04-15] MEDS: PANTOPRAZOLE 40 MG TABLET PO SCH (09:50)
[2020-04-15] MEDS: AZITHROMYCIN IVPB 500 MG/250 ML BAG IVPB SCH (10:03)
[2020-04-15] MEDS ORDERED: ALBUTEROL SO4 0.042% IH SOL 1.25 MG/3 ML VIAL.NEB NEB PRN (11:15)
[2020-04-15] MEDS ORDERED: ACETAMINOPHEN 325 MG TABLET (FP) PO PRN (17:29)
[2020-04-15] MEDS: methylPREDNISolone NA SUCC 40 MG/1 ML VIAL IVPB SCH (17:54)
[2020-04-15] MEDS: ACETAMINOPHEN 325 MG TABLET (FP) PO PRN ×2 (17:57→21:29)
[2020-04-15] MEDS: IPRATROPIUM BR 0.02% 0.5 MG/2.5 ML VIAL.NEB. NEB PRN (23:04)
[2020-04-16] MEDS: methylPREDNISolone NA SUCC 40 MG/1 ML VIAL IVPB SCH ×3 (01:20→19:02)
[2020-04-16] MEDS: ACETAMINOPHEN 325 MG TABLET (FP) PO PRN ×2 (05:14→21:10)
[2020-04-16] MEDS: IPRATROPIUM BR 0.02% 0.5 MG/2.5 ML VIAL.NEB. NEB PRN ×2 (07:36→20:10)
[2020-04-16] MEDS: ENOXAPARIN NA (PORCINE) 40 MG/0.4 ML DISP.SYRIN SQ SCH (11:30)
[2020-04-16] MEDS: AZITHROMYCIN IVPB 500 MG/250 ML BAG IVPB SCH (11:30)
[2020-04-16] MEDS: PANTOPRAZOLE 40 MG TABLET PO SCH (11:30)
[2020-04-17] MEDS: methylPREDNISolone NA SUCC 40 MG/1 ML VIAL IVPB SCH ×2 (01:11→09:55)
[2020-04-17] MEDS: ACETAMINOPHEN 325 MG TABLET (FP) PO PRN (05:26)
[2020-04-17 05:57] VITALS: BP 146/95; PULSE 78; TEMP 97.7
[2020-04-17] MEDS: IPRATROPIUM BR 0.02% 0.5 MG/2.5 ML VIAL.NEB. NEB PRN (07:30)
[2020-04-17] MEDS: AZITHROMYCIN IVPB 500 MG/250 ML BAG IVPB SCH (09:52)
[2020-04-17] MEDS: ENOXAPARIN NA (PORCINE) 40 MG/0.4 ML DISP.SYRIN SQ SCH (09:55)
[2020-04-17] MEDS: PANTOPRAZOLE 40 MG TABLET PO SCH (10:00)
== END 2020-04-17 10:20 | disposition home or self-care (01) | DRG 141 ==
LOC: JER 09:13 → JERBED 11:45 → J7W 20:11
PROVIDERS: ADMIT Internal Medicine; ATTEND Internal Medicine
DX: J45.901 Unspecified asthma with (acute) exacerbation (principal); E66.9 Obesity, unspecified; Z68.30 Body mass index [BMI] 30.0-30.9, adult; Z86.16 Personal history of COVID-19
CPT/HCPCS: 36415; 71045-TC-FY; 80053; 83880; 84484; 85025; 90732; 93005; 93010; 94010; 94640; 99285-25; C9803; G0009; U0003

== ENCOUNTER 2020-05-30 08:54 | Emergency (ER) | payer OTHER ==
[2020-05-30 09:06] VITALS: BP 127/80; PULSE 92; TEMP 98; BMI 28.8
[2020-05-30] MEDS ORDERED: ACETAMINOPHEN 500 MG TABLET (FP) PO ONE (09:59)
[2020-05-30] MEDS ORDERED: ACETAMINOPHEN 500 MG TABLET (FP) ONE (10:15)
== END 2020-05-30 13:09 | disposition home or self-care (01) ==
LOC: JER 08:54
DX: S09.92XA Unspecified injury of nose, initial encounter (principal); W01.198A Fall on same level from slipping, tripping and stumbling with subsequent striking against other object, initial encounter
CPT/HCPCS: 70450-TC; 70486-TC; 99284-25

== ENCOUNTER 2021-03-15 08:18 | Emergency (ER) | payer OTHER ==
[2021-03-15 08:28] VITALS: BP 118/60; PULSE 92; TEMP 98.2; BMI 29.0
[2021-03-15] MEDS ORDERED: KETOROLAC TROMETHAMINE 60 MG/2 ML VIAL IM ONE (09:51)
[2021-03-15] MEDS ORDERED: KETOROLAC TROMETHAMINE 30 MG/1 ML VIAL ONE (09:57)
== END 2021-03-15 10:08 | disposition home or self-care (01) ==
LOC: JERFT 08:18
PROC: 3E0233Z Introduction of Anti-inflammatory into Muscle, Percutaneous Approach (ICD-10-PCS; principal; 2021-03-15)
DX: H60.502 Unspecified acute noninfective otitis externa, left ear (principal)
CPT/HCPCS: 99284-25

== ENCOUNTER → 2021-06-04 | Day surgery (SDC) | payer MEDICARE, OTHER | END | disposition home or self-care (01) | LOC: JRADIR 09:26 | PROVIDERS: ATTEND Internal Medicine | PROC: 0G9G3ZX Drainage of Left Thyroid Gland Lobe, Percutaneous Approach, Diagnostic (ICD-10-PCS; principal; 2021-06-04) | DX: E04.1 Nontoxic single thyroid nodule (principal) | CPT/HCPCS: 10005; 76942; 88173; 88305-TC ==